=== PATIENT | male | born 1970 | race Caucasian/White ===

== ENCOUNTER 2025-02-20 10:07 | Outpatient (REF) | payer OTHER, SELFPAY ==
[2025-02-20 10:32] LABS: MANUAL DIFF FLAG NO
[2025-02-20 11:01] LABS: Basophils Absolute Auto 0.1 X10*3/uL (0.0-0.2); Basophils Percent Auto 1.1 % (0-2); Eosinophils Absolute Auto 0.5 X10*3/uL (0.0-0.4); Eosinophils Percent Auto 5.6 % (0-4); Hematocrit 38.5 % (42.0-52.0); Hemoglobin 13.9 g/dl (14.0-18.0); Imm Gran Abs Auto 0.06 X10*3/uL (0.00-0.03); Imm Gran Pct Auto 0.7 % (0.0-0.4); Lymphocytes Absolute Auto 3.6 X10*3/uL (1.2-4.9); Lymphocytes Percent Auto 40.6 % (20-40); Mean Corpuscular HGB Conc 36.1 g/dl (31.0-36.0); Mean Corpuscular Hemoglobin 31.5 pg (27.0-33.0); Mean Corpuscular Volume 87.3 fL (80.0-98.0); Monocytes Absolute Auto 0.7 X10*3/uL (0.1-1.2); Neutrophils Absolute Auto 3.9 x10*3/uL (2.0-8.3); Platelet Count 271 X10*3/uL (160-400); Red Blood Count 4.41 X10*6/uL (4.60-5.80); Red Cell Distribution Width 11.7 % (11.0-16.0); White Blood Count 8.9 X10*3/uL (4.8-10.8)
[2025-02-20 11:17] LABS: Estimated Average Glucose 103 mg/dL; Hemoglobin A1C 120.5483 umol/L; Hemoglobin A1c % 5.2 % (<6.0); Total Hemoglobin (HGBA1C) 3653.3075 umol/L
[2025-02-20 11:26] LABS: Valproate 34.3 mcg/mL (50.0-100.0)
[2025-02-20 11:49] LABS: Alanine Aminotransferase 17 U/L (0-40); Albumin Level 4.1 g/dL (3.5-5.0); Alkaline Phosphatase 65 U/L (39-117); Anion Gap 12 (12-20); Aspartate Amino Transferase 17 U/L (5-37); Bilirubin Total 0.3 mg/dL (0.0-1.0); Blood Urea Nitrogen 9 mg/dL (9-16); Calcium 9.1 mg/dL (8.4-10.2); Carbon Dioxide 26 mmol/L (22-29); Chloride 97 mmol/L (96-108); Cholesterol 175 mg/dL (<200); Estimated Glomerular Filt Rate > 60; Glucose Random 130 mg/dL (60-115); HDL Cholesterol 42 mg/dL (>40); LDL Cholesterol Calculated 105 mg/dL (<100); Potassium 4.1 mmol/L (3.3-5.1); Sodium 131 mmol/L (135-145); Thyroid Stimulating Hormone 2.34 uIU/mL (0.32-4.0); Total Protein 6.5 g/dL (6.5-8.0); Triglycerides 144 mg/dL (<150)
[2025-02-21 08:39] LABS: Prolactin 47.3 ng/mL (2.0-18.0)
== END 2025-02-20 10:08 | disposition home or self-care (01) ==
LOC: HO.LAB 10:07
PROVIDERS: Visit Provider Nurse Practitioner Psychiatric/Mental Health
DX: Z79.899 Other long term (current) drug therapy (principal)
CPT/HCPCS: 36415; 80053; 80061; 80164; 83036; 84146; 84443; 85025

== ENCOUNTER 2025-07-26 21:57 | Emergency (ER) | payer OTHER, SELFPAY ==
[2025-07-26 22:05] VITALS: PULSE 104; O2SAT 97; BMI 31.6
--- NOTE | 2025-07-26 22:08 | PC.NURSE ---
pt has no medical complaint, PD was called to [facility] as pt was masturbating publicly, staff advised pt to stop with no success. PD arrived and called EMS. pt does not want to be here, not currently on any sections. This RN attempting to get in touch with [facility], called [phone]. Carete member states she spoke with N and they would like him evaluated for extreme sexual behavior.
[2025-07-26 22:41] LABS: MANUAL DIFF FLAG NO
[2025-07-26 22:43] LABS: Hematocrit 34.1 % (42.0-52.0); Hemoglobin 12.0 g/dl (14.0-18.0); Imm Gran Abs Auto 0.03 X10*3/uL (0.00-0.03); Imm Gran Pct Auto 0.4 % (0.0-0.4); Lymphocytes Absolute Auto 2.2 X10*3/uL (1.2-4.9); Mean Corpuscular HGB Conc 35.2 g/dl (31.0-36.0); Mean Corpuscular Hemoglobin 30.4 pg (27.0-33.0); Mean Corpuscular Volume 86.3 fL (80.0-98.0); NRBC Abs Auto 0.000 X10*3/uL (0.0-0.012); NRBC Pct Auto 0.0 /100WBC (0.0-0.2); Platelet Count 253 X10*3/uL (160-400); Red Blood Count 3.95 X10*6/uL (4.60-5.80); White Blood Count 7.5 X10*3/uL (4.8-10.8)
[2025-07-26 23:04] LABS: Alanine Aminotransferase 22 U/L (0-40); Albumin Level 4.1 g/dL (3.5-5.0); Alkaline Phosphatase 66 U/L (39-117); Anion Gap 16 (12-20); Aspartate Amino Transferase 21 U/L (5-37); Blood Urea Nitrogen 6 mg/dL (9-16); Calcium 8.5 mg/dL (8.4-10.2); Carbon Dioxide 23 mmol/L (22-29); Chloride 95 mmol/L (96-108); Creatinine Clr Calc Pharmacy 144.1; Estimated Glomerular Filt Rate > 60; Potassium 4.0 mmol/L (3.3-5.1); Sodium 130 mmol/L (135-145); Total Protein 6.3 g/dL (6.5-8.0)
[2025-07-26 23:07] VITALS: BP 140/86; PULSE 98; RESP 18; TEMP 37.4; O2SAT 97
--- NOTE | 2025-07-26 23:47 | PC.NURSE ---
pt asked for lotion/ ointment, advised we have none available.
[2025-07-27 00:42] LABS: Appearance Urine Clear; Glucose Urine UA Negative (Negative); PH 7.0 (5.0-9.0); Specific Gravity - Urine 1.010 (1.005-1.025)
[2025-07-27 00:46] LABS: Cannabinoid Screen Urine POSITIVE (Not Detect)
--- NOTE | 2025-07-27 03:24 | PC.NURSE ---
medication ordered by provider, Lindsey warehouse foreman to bring medication down as we do not have in ED pyxus. Pt advised of delay. pt agrees.
--- NOTE | 2025-07-27 04:03 | PC.NURSE ---
pt medicated per MAR, saying racial slurs, advised to be respectful, pt calmed down and took medication.
[2025-07-27] MEDS: Nicotine Polacrilex Lozenge 4 MG LOZENGE BUCCAL (04:36)
--- NOTE | 2025-07-27 04:38 | PC.NURSE ---
p medicated per MAR
--- NOTE | 2025-07-27 07:02 | ED_ITS ---
HPI - General Adult General Chief complaint: Behavioral Concerns Stated complaint: behavioral Time Seen by Provider: 07/26/25 22:52 Source: patient Limitations: no limitations History of Present Illness ED Provider: Shyla Winter PA-C HPI narrative: 54-year-old male who presents from a jail/half-way house, with paranoid and hypersexual behaviors. Patient was masturbating in public and displaying paranoid behaviors, he was told to stop what he was doing, he stated ?you do not believe in God your the devil?. Patient also states ?I can not ejaculate in the scrotal is excited me?. Patient was referring to 1 of the staff members at the jail. Patient denies SI or HI. Related Data Allergies Allergy/AdvReac Type Severity Reaction Status Date / Time No Known Allergies Allergy Verified 07/26/25 22:08 Review of Systems 2 Review of Systems: Unable to obtain given the patient is hostile and belligerent Yes all other systems are reviewed and are negative PMFSH Past Medical History Attestation statement: The following information was validated with the patient. Physical Exam ED Vital Signs: Vital Signs - 24 hr 07/26/25 23:07 Temperature 99.4 F Pulse Rate 98 Respiratory Rate 18 Blood Pressure 140/86 H Pulse Oximetry 97 Oxygen Delivery Method Room Air BMI result Body Mass Index 31.6 Const Other: Alert Orientation/consciousness: patient oriented x3 Resp Effort & Inspection: normal respiratory effort Cardio Other: Normal peripheral perfusion Skin Other: Warm dry no rash Neuro General: patient oriented x3, gait normal, no focal motor deficits and CN's II- XI intact bilaterally Psych Other: Patient has hostile, belligerent, cursing at staff stating that ?we are all layers?, yelling profanities at staff were women primarily Course Course Course Narrative: The patient has hostility is escalating, he is asking to smoke a cigarette, he is willing to use nicotine replacement, giving him oral Haldol and Ativan Reevaluation(s) Reevaluation #1: Time: 07:08 Date: 07/27/25 Provider: BRANDON Adame Patient in physician observation for psychiatric evaluation.? No acute events reported overnight. No current complaints. VS stable.? Patient is in bed search status/pending CARE team evaluation. Will continue to monitor. Reevaluation #2: [place]: The patient is a 54-year-old male who was being held in the emergency room for evaluation by the care team. He is a 54-year-old male who may have a history of schizoaffective disorder. He lives at a jail and has lived at a jail for a few decades. He presented with some paranoid ideation and also public masturbation. The care team requested an evaluation by psychiatry for assistance in determining and appropriate disposition. The patient was seen by Dr. Green of Psychiatry. Dr. Green felt that the patient would probably not benefit from inpatient hospitalization and that there was no grounds for involuntary hospitalization. The patient has a long history of public masturbation. The patient is on Depakote and Risperdal. He also receives monthly depot injections of Invega [facility]. The jail was contacted and although they would prefer the patient to be hospitalized they are willing to take him back. The patient has family was at the bedside as well. Arrangements will be made for the patient is to returned to his jail by taxi. The patient seems calm and stable at this time. Time: 13:09 Medications Administered Discontinued Medications Generic Name Dose Route Start Last Admin Trade Name Freq PRN Reason Stop Dose Admin Haloperidol 5 mg 07/27/25 02:53 07/27/25 04:36 Haloperidol 5 Mg Tablet PO 07/27/25 02:54 5 mg ONCE ONE Administration Lorazepam 2 mg 07/27/25 02:53 07/27/25 04:00 Lorazepam 1 Mg Tablet PO 07/27/25 02:54 2 mg ONCE ONE Administration Nicotine Polacrilex 4 mg 07/27/25 02:53 07/27/25 04:36 Nicotine Polacrilex Lozenge 4 Mg Lozenge BUCCAL 07/27/25 02:54 4 mg ONCE ONE Administration Medical Decision Making Medical Decision Making MDM Narrative: 54-year-old male who presents from a jail/half-way house, with paranoid and hypersexual behaviors. Patient was masturbating in public and displaying paranoid behaviors, he was told to stop what he was doing, he stated ?you do not believe in God your the devil?. Patient also states ?I can not ejaculate in the scrotal is excited me?. Patient was referring to 1 of the staff members at the jail. Patient denies SI or HI. Problem: Hypersexual behavior, paranoia History: Per patient which is limited I have considered the following differential diagnoses: SI, HI, decompensated psychiatric illness, drug/alcohol intoxication Plan: The patient will be referred to the care team, his behaviors inappropriate, he has been made a section 12, he will have likely psychiatric consult during his assessment. Screening labs including drug screen and ethanol we will be obtained. I have independently reviewed the following tests: Labs: No leukocytosis, not anemic, no electrolyte abnormality, tox screen positive for marijuana, ethanol less than 10 Differential Diagnosis Differential Diagnoses: The differential diagnosis associated with the presentation includes See medical decision-making Admission/Observation Consideration of admission/observation: Escalation of care including admission/observation considered May require inpatient level of care Consult Healthcare Provider Management of the patient was discussed with: Superintendent Pier and Behavioral [facility] Provider Psych consult as well as care team Lab Data MDM Lab Attestation statement: I reviewed the patient's lab results. 07/26/25 22:38 07/26/25 22:38 Labs: Lab Results 07/26/25 07/27/25 Range/Units 22:38 00:28 WBC 7.5 (4.8-10.8) X10*3/uL RBC 3.95 L (4.60-5.80) X10*6/uL Hgb 12.0 L (14.0-18.0) g/dl Hct 34.1 L (42.0-52.0) % MCV 86.3 (80.0-98.0) fL MCH 30.4 (27.0-33.0) pg MCHC 35.2 (31.0-36.0) g/dl RDW 11.8 (11.0-16.0) % Plt Count 253 (160-400) X10*3/uL MPV 7.8 L (9.4-12.4) fL Immature Gran % (Auto) 0.4 (0.0-0.4) % Neut % (Auto) 53.7 (45-73) % Lymph % (Auto) 29.5 (20-40) % [place] % (Auto) 11.3 H (2-11) % Eos % (Auto) 4.0 (0-4) % Baso % (Auto) 1.1 (0-2) % Lymph # (Auto) 2.2 (1.2-4.9) X10*3/uL [place] # (Auto) 0.9 (0.1-1.2) X10*3/uL Eos # (Auto) 0.3 (0.0-0.4) X10*3/uL Baso # (Auto) 0.1 (0.0-0.2) X10*3/uL Abs Immat Gran (auto) 0.03 (0.00-0.03) X10*3/uL Absolute Neuts (auto) 4.0 (2.0-8.3) x10*3/uL Absolute Nucleated RBC 0.000 (0.0-0.012) X10*3/uL Nucleated RBC % (auto) 0.0 (0.0-0.2) /100WBC Sodium 130 L (135-145) mmol/L Potassium 4.0 (3.3-5.1) mmol/L Chloride 95 L (96-108) mmol/L Carbon Dioxide 23 (22-29) mmol/L Anion Gap 16 (12-20) BUN 6 L (9-16) mg/dL Creatinine 0.71 (0.5-1.4) mg/dL Estim Creat Clear Calc 144.1 Estimated GFR > 60 Random Glucose 128 H (60-115) mg/dL Calcium 8.5 D (8.4-10.2) mg/dL Total Bilirubin 0.1 (0.0-1.0) mg/dL AST 21 (5-37) U/L ALT 22 (0-40) U/L Alkaline Phosphatase 66 (39-117) U/L Total Protein 6.3 L (6.5-8.0) g/dL Albumin 4.1 (3.5-5.0) g/dL Urine Color Yellow Urine Appearance Clear Urine pH 7.0 (5.0-9.0) Ur Specific [place] 1.010 (1.005-1.025) Urine Protein Negative (Neg-Trace) mg/dL Urine Glucose (UA) Negative (Negative) mg/dL Urine Ketones Negative (Negative) mg/dL Urine Blood Negative (Negative) Urine Nitrite Negative (Negative) Ur Leukocyte Esterase Negative (Negative) Urine Opiates Screen Not Detected (Not Detect) Ur Buprenorphine Scrn Not Detected (Not Detect) ng/mL Ur Oxycodone Screen Not Detected (Not Detect) ng/mL Urine Methadone Screen Not Detected (Not Detect) ng/mL Urine Fentanyl Screen Not Detected (Not Detect) Ur Barbiturates Screen Not Detected (Not Detect) Ur Phencyclidine Scrn Not Detected (Not Detect) Ur Amphetamines Screen Not Detected (Not Detect) U Benzodiazepines Scrn Not Detected (Not Detect) Urine Cocaine Screen Not Detected (Not Detect) U Marijuana (THC) Screen POSITIVE H (Not Detect) Ethyl Alcohol < 10 mg/dL Discharge Plan Discharge Clinical Impression: Paranoia Patient Disposition: Home, Self-Care Additional Instructions: Please continue all of your regular medications. [facility]). Return to the emergency room if worse. Referrals: [facility], [facility] [Provider Group] Interventions: ED Discharge Assessment Last Done: 07/27/25 13:41 Discharge Date/Time: 07/27/25 13:44 Print Language: [place] Timorese
--- NOTE | 2025-07-27 07:37 | PC.NURSE ---
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
--- NOTE | 2025-07-27 11:25 | PM.PSYCN ---
History of Present Illness Date of Service: 07/27/25 Chief Complaint: behavioral Reason for Consult: Psychiatric evaluation/disposition Requesting physician: Shyla Winter Discussed with referring provider: Yes Sources of Information: patient interviewed, chart reviewed and crisis/core team assessment reviewed HPI Narrative: 54-year-old male who presents from [place] [facility], with paranoid and hypersexual behaviors. Patient was masturbating in public and displaying paranoid behaviors, he was told to stop what he was doing, he stated ?you do not believe in God your the devil?. Patient also states ?I can not ejaculate in the scrotal is excited me?. Patient was referring to 1 of the staff members at the [place]. Patient denies SI or HI. He was recently discharged from [facility] about 2 weeks ago where he was for around 45 days on a section 35 for history of crack cocaine use and he has not used since discharge. I could not get an exact list of his medications but he is on Depakote 750 mg daily, Invega Sustenna-unknown dose monthly and Risperdal daily unknown dose. He has been medication compliant and is seen and followed at [facility] in. He resides in a [place] and is involved with the [facility] program I was also able to talk to his parents who were present in the emergency room. The masturbation has been something that he has done, sometimes in public places for years but not recently. Past Psychiatric History: Inpatient and outpatient Medical Evaluation Reviewed: Yes (Very) Personal & Social History: Chronic psychosis and currently residing in [place] Review of Systems Review of Systems Yes all other systems are reviewed and are negative Diagnostics Vital Signs (24Hr): Vital Signs - 24 hr 07/26/25 23:07 Temperature 99.4 F Pulse Rate 98 Respiratory Rate 18 Blood Pressure 140/86 H Pulse Oximetry 97 Oxygen Delivery Method Room Air BMI result Body Mass Index 31.6 Labs 07/26/25 22:38 07/26/25 22:38 Labs: Laboratory Results - last 48 hr 07/26/25 07/27/25 22:38 00:28 WBC 7.5 RBC 3.95 L Hgb 12.0 L Hct 34.1 L MCV 86.3 MCH 30.4 MCHC 35.2 RDW 11.8 Plt Count 253 MPV 7.8 L Immature Gran % (Auto) 0.4 Neut % (Auto) 53.7 Lymph % (Auto) 29.5 Baker % (Auto) 11.3 H Eos % (Auto) 4.0 Baso % (Auto) 1.1 Lymph # (Auto) 2.2 Baker # (Auto) 0.9 Eos # (Auto) 0.3 Baso # (Auto) 0.1 Abs Immat Gran (auto) 0.03 Absolute Neuts (auto) 4.0 Absolute Nucleated RBC 0.000 Nucleated RBC % (auto) 0.0 Sodium 130 L Potassium 4.0 Chloride 95 L Carbon Dioxide 23 Anion Gap 16 BUN 6 L Creatinine 0.71 Estim Creat Clear Calc 144.1 Estimated GFR > 60 Random Glucose 128 H Calcium 8.5 D Total Bilirubin 0.1 AST 21 ALT 22 Alkaline Phosphatase 66 Total Protein 6.3 L Albumin 4.1 Urine Color Yellow Urine Appearance Clear Urine pH 7.0 Ur Specific [place] 1.010 Urine Protein Negative Urine Glucose (UA) Negative Urine Ketones Negative Urine Blood Negative Urine Nitrite Negative Ur Leukocyte Esterase Negative Urine Opiates Screen Not Detected Ur Buprenorphine Scrn Not Detected Ur Oxycodone Screen Not Detected Urine Methadone Screen Not Detected Urine Fentanyl Screen Not Detected Ur Barbiturates Screen Not Detected Ur Phencyclidine Scrn Not Detected Ur Amphetamines Screen Not Detected U Benzodiazepines Scrn Not Detected Urine Cocaine Screen Not Detected U Marijuana (THC) Screen POSITIVE H Ethyl Alcohol < 10 Mental Status Exam Mental Status Exam Narrative: Anurag was seen in the emergency room today. He is alert, oriented and pleasant. Normal speech. Good eye contact. Affect is appropriate and varied. No acute signs of psychosis observed at this time. No overt delusions or paranoia but references to paranoid ideations and statements have been made by others. He denies AVH. He denies any HI/SI. No gross cognitive deficits. Denies suicidality judgment is impaired based on chronic psychiatric issues. Medications Medications HPI Allergies Allergies Allergy/AdvReac Type Severity Reaction Status Date / Time No Known Allergies Allergy Verified 07/26/25 22:08 Assessment & Plan Assessment & Plan (1) Psychosis: Status: Acute Code(s): F29 - Unspecified psychosis not due to a substance or known physiological condition Plan Based on my current evaluation I do not see any acute presentation other than the chronic behavioral issue with sexualized behavior and masturbation. If the home is willing to take him back I would support that and if not we need to continue a bed search and more than likely to go back to [place] where he was last discharged from very recently. Total time managing care of this patient today ____ minutes.
--- NOTE | 2025-07-27 13:01 | MHC.CARE ---
Per psychiatry Pt does not the criteria for IPLOC and will D/C back to alf to follow up with current providers.
[2025-07-27 13:25] VITALS: BP 135/85; PULSE 98; RESP 14; TEMP 36.9; O2SAT 93
[2025-07-27 13:41] VITALS: BP 135/85; PULSE 98; RESP 14; TEMP 36.9; O2SAT 93
== END 2025-07-27 13:44 | disposition home or self-care (01) ==
PROVIDERS: Physician Assistant Medical; Emergency Provider Emergency Medicine
DX: F22 Delusional disorders (principal); F29 Unspecified psychosis not due to a substance or known physiological condition; F66 Other sexual disorders; Z79.899 Other long term (current) drug therapy
CPT/HCPCS: 36415; 80053; 80307; 81003; 85025; 99283; 99284; S9485

== ENCOUNTER → 2025-07-26 22:26 | Outpatient (BNV) | payer OTHER, SELFPAY | PROVIDERS: Emergency Provider Emergency Medicine; Visit Provider Psychiatry & Neurology Psychiatry | DX: F29 Unspecified psychosis not due to a substance or known physiological condition (principal) | CPT/HCPCS: 99282 ==